=== PATIENT | female | born 1995 | race Caucasian/White ===

== ENCOUNTER → 2016-06-19 | Outpatient (REF) | payer OTHER ==
[~2016-06-19] MED LIST: FLOM5CAP PO; IRON65TA PO; KEFL500C7 PO; NORC7.5T PO; PERC7.5T3 PO; PREN1TAB11 PO; PRENTAB72 PO; ZOFR4TAB3 PO; ZOLO50TA PO
== END ==
LOC: M LAB REF 16:57
PROVIDERS: ATTEND Advanced Practice Midwife
DX: Z34.83 Encounter for supervision of other normal pregnancy, third trimester (principal)

== ENCOUNTER 2016-06-21 19:32 | Outpatient (CLI) | payer OTHER ==
[~2016-06-21] VITALS: Ht 172.7 cm; Wt 95.0 kg
[~2016-06-21 19:32] MED LIST changes: -PREN1TAB11 PO
[2016-06-21 19:46] VITALS: BP 124/77
[2016-06-21 20:11] LABS: MEAN CORPUSCULAR HEMOGLOBIN 28.5 pg (27.0-33.0); MEAN CORPUSCULAR HGB CONC 33.7 g/dl (32.0-36.5); MEAN CORPUSCULAR VOLUME 84.5 fl (80.0-96.0); RED CELL DISTRIBUTION WIDTH 13.9 % (11.5-14.5); WHITE BLOOD COUNT 7.5 K/mm3 (4.0-10.0)
[2016-06-21 20:35] LABS: ALT/SGPT 30 U/L (12-78); AST/SGOT 28 U/L (15-37); BILIRUBIN,TOTAL 0.3 MG/DL (0.2-1.0); CREATININE FOR GFR 0.63 MG/DL (0.55-1.02); GLOMERULAR FILTRATION RATE > 60.0 (>60); URIC ACID 3.7 MG/DL (2.6-6.0)
[2016-06-21] MEDS ORDERED: ACETAMINOPHEN 500 MG TAB PO PRN (20:45)
[2016-06-21 20:57] VITALS: BP 116/56
[2016-06-25] MEDS ORDERED: PREN1TAB11 PO (11:17)
== END 2016-06-21 21:10 | disposition home or self-care (01) ==
LOC: M LDO 19:32
PROVIDERS: ATTEND Advanced Practice Midwife
DX: O99.89 Other specified diseases and conditions complicating pregnancy, childbirth and the puerperium (principal); R51 Headache; J02.9 Acute pharyngitis, unspecified; Z3A.38 38 weeks gestation of pregnancy; Z87.59 Personal history of other complications of pregnancy, childbirth and the puerperium

== ENCOUNTER 2016-06-26 23:41 | Outpatient (CLI) | payer OTHER ==
[~2016-06-26] VITALS: Ht 172.7 cm; Wt 94.0 kg
[~2016-06-26 23:41] MED LIST changes: +PREN1TAB11 PO
[2016-06-26 23:50] VITALS: BP 161/86
[2016-06-26 23:59] VITALS: BP 147/79
[2016-06-27 00:23] VITALS: BP 114/62
[2016-06-27 00:48] VITALS: BP 118/59
== END 2016-06-27 01:10 | disposition home or self-care (01) ==
LOC: M LDO 23:41
PROVIDERS: ATTEND Obstetrics & Gynecology
DX: O47.1 False labor at or after 37 completed weeks of gestation (principal); O99.343 Other mental disorders complicating pregnancy, third trimester; O99.333 Smoking (tobacco) complicating pregnancy, third trimester; Z3A.40 40 weeks gestation of pregnancy

== ENCOUNTER 2016-07-02 07:54 | Inpatient (IN) | payer OTHER ==
[2016-07-02] VITALS (7 sets, daily range): BP systolic 110–135; BP diastolic 55–83
[~2016-07-02] VITALS: Ht 175.3 cm; Wt 94.0 kg
[2016-07-02] MEDS ORDERED: LR 1,000 ML IV SCH ×3 (07:58→12:15)
[2016-07-02] MEDS ORDERED: BICITRA 30ML SOLN UDC PO ONE (08:00)
[2016-07-02] MEDS ORDERED: ZOLO25TA PO (08:09)
[2016-07-02] MEDS ORDERED: IBUP800T23 PO (08:15)
[2016-07-02] MEDS ORDERED: PERCOCET PO (08:16)
--- NOTE | 2016-07-02 08:24 | HPE ---
DATE OF ADMISSION: 07/02/2016 REASON FOR ADMISSION: Scheduled repeat section. HISTORY OF PRESENT ILLNESS: Ms. Napoles is a 21-year-old, 4, para 2, who presents at 39 weeks 0 days estimated gestational age by a first trimester ultrasound for a scheduled section. Her course has been unremarkable. She initiated care in the first trimester at [facility] and has since transferred care to [facility] at 34 weeks. PAST MEDICAL HISTORY: None. PAST SURGICAL HISTORY: She has had a primary section and urethral stents placed. PAST OBSTETRICAL HISTORY: She is a 4, para 2. She has had a term vaginal delivery, followed by a section at 36 weeks for severe preeclampsia. SOCIAL HISTORY: History of heroin abuse as well as a former smoker. She quit during the . MEDICATIONS: - Zoloft for depression - vitamins ALLERGIES: She has no known drug allergies. PHYSICAL EXAM: Her vital signs are stable. She is afebrile. She has a Category I heart tracing. No contractions on tocometer. Her lungs are clear to auscultation bilaterally. Cardiovascular: Heart regular rate and rhythm. Her abdomen is soft, gravid, nontender. LABS: On labs, her blood type is A negative. Antibody screen is negative. Rubella is immune. RPR is nonreactive. Hepatitis surface antigen is negative. HIV negative. Hepatitis C nonreactive. Chlamydia and gonorrhea negative. She had a normal 1-hour Glucola of 120. She is GBS negative. ASSESSMENT: Ms. Napoles is a 21-year-old, 4, para 2, at 39 weeks 0 days estimated gestational age for scheduled section. She has been thoroughly counseled with regards to management for mode of delivery. She has been counseled for a trial of labor after section as well as an elective repeat lower transverse section. After consultation, the patient desires to proceed with an elective repeat lower transverse section. The plan is to proceed.
[2016-07-02 08:34] LABS: MEAN CORPUSCULAR HEMOGLOBIN 28.1 pg (27.0-33.0); MEAN CORPUSCULAR HGB CONC 32.7 g/dl (32.0-36.5); MEAN CORPUSCULAR VOLUME 85.8 fl (80.0-96.0); RED CELL DISTRIBUTION WIDTH 14.8 % (11.5-14.5); WHITE BLOOD COUNT 10.9 K/mm3 (4.0-10.0)
[2016-07-02] MEDS: PRENATAL VITAMIN TAB PO SCH (09:00)
[2016-07-02] MEDS ORDERED: METOCLOPRAMIDE INJ 10MG/2ML VIAL (J2765) IV PRN (10:29)
[2016-07-02] MEDS ORDERED: NALBUPHINE HCL 10 MG/ML AMP (J2300) IV PRN (10:29)
[2016-07-02] MEDS ORDERED: NALOXONE INJ 0.4 MG/1 ML VIAL (J2310) IV PRN ×2 (10:29)
[2016-07-02] MEDS ORDERED: ONDANSETRON 4MG/2ML VIAL (J2405) IV PRN ×3 (10:29→12:15)
[2016-07-02] MEDS ORDERED: fentaNYL 100 MCG/2 ML INJECTION (J3010) As Ordered ONE (11:08)
[2016-07-02] MEDS ORDERED: PHENYLephrine HCL 500 MCG/5 ML (100MCG/ML) SYRINGE (J2370) As Ordered ONE (11:08)
[2016-07-02] MEDS ORDERED: ONDANSETRON 4MG/2ML VIAL (J2405) As Ordered ONE (11:08)
[2016-07-02] MEDS ORDERED: KETOROLAC 60 MG/2 ML VIAL (J1885) As Ordered ONE (11:08)
[2016-07-02] MEDS ORDERED: OXYTOCIN INJ 10 UNITS/ML VIAL (J2590) As Ordered ONE (11:08)
[2016-07-02] MEDS ORDERED: MORPHINE PRES-FREE INJ 10 MG/10 ML VIAL (J2274) As Ordered ONE (11:08)
[2016-07-02] MEDS ORDERED: ePHEDrine SULFATE 25 MG/5 ML(5MG/ML) SYRINGE As Ordered ONE (11:08)
[2016-07-02] MEDS ORDERED: OXYTOCIN DRIP 30 UNITS in APPROPRIATE DILUENT 1 EA IV ONE (11:45)
[2016-07-02] MEDS ORDERED: DOCUSATE SODIUM 100 MG CAP PO PRN (11:45)
[2016-07-02] MEDS ORDERED: MEASLES,MUMPS,RUBELLA VACCINE INJ (MMR-II) (90707) SC SCH (11:45)
[2016-07-02] MEDS ORDERED: MOM 30ML SUSPENSION UDC PO PRN (11:45)
[2016-07-02] MEDS ORDERED: PERCOCET 5MG/325MG TAB PO PRN (11:45)
[2016-07-02] MEDS ORDERED: RHOGAM 300 MCG (1500 IU) INJ (J2790) IM SCH (11:45)
--- NOTE | 2016-07-02 12:09 | RO ---
DATE OF PROCEDURE: 07/02/2016 PREPROCEDURE DIAGNOSIS: Elective repeat low transverse section at 39 weeks 0 days estimated gestational age. POSTPROCEDURE DIAGNOSIS: Elective repeat low transverse section at 39 weeks 0 days estimated gestational age. PROCEDURE: Repeat section. SURGEON: Dalila Shea M.D. BUTCHER FISH: Jameson Hernandez M.D. Resident Maria G Escamilla. ANESTHESIA: Spinal. ESTIMATED BLOOD LOSS: 500 mL. INTRAVENOUS FLUIDS: 1800 mL lactated ringer solution. URINE OUTPUT: 150 mL. SPECIMENS: Cord blood. OPERATIVE FINDINGS: Live born male infant. 9 and 9. Weight 5 pounds 6 ounces, 2438 grams. PREOPERATIVE ANTIBIOTICS: 2 grams of Ancef. DESCRIPTION OF OPERATION: After informed consent was obtained and written consent was reviewed, the patient was brought to the operating room where spinal anesthesia was placed. She was then placed in the lithotomy position with left lateral tilt, Sprague catheter was placed and set to gravity. She was then prepped and draped in a normal sterile fashion. A time out in the operating room was then performed identifying the patient, procedure to be performed as well as drug allergies. Anesthesia was then tested and deemed to be adequate. A Pfannenstiel skin incision was then made along the previous skin incision and carried down to the lateral rectus fascia. The fascia was then scored and this excision was extended bilaterally. The fascia was then dissected off of the underlying rectus muscles both superiorly and inferiorly. The rectus muscles were then in midline, the peritoneum was then entered sharply. The vesicouterine peritoneum was then identified. It was tented and excised to create a bladder flap. Bladder blade was then placed and retracted back the bladder. A curvilinear incision was then made in the lower uterine segment. Amniotomy was then performed productive of clear fluid. The head was brought to the level of the incision atraumatically followed by delivery of shoulder and corpus. The cord was clamped times two and the was brought over to the warmer with good cry. Cord blood was then obtained. Placenta was then delivered grossly intact. The uterus was then exteriorized and cleared of all clots and debris. The uterine incision was then closed in two layers using #0 Vicryl, first layer in a running locking fashion followed by a second layer for imbrication in a running out of locking fashion. The abdomen was then suctioned. The uterus was returned to the patient's abdomen. Uterine incision was inspected and noted to be hemostatic. The anterior peritoneum was then reapproximated using #3-0 Vicryl. Rectus muscles were reapproximated using #3-0 Vicryl. The fascia was then closed using #0 Vicryl in a running non-locking fashion. The subcutaneous tissue was then irrigated to suction. Danyel's fascia was reapproximated with #3-0 Vicryl. Several subdermal stitches were placed with #3-0 Vicryl and the skin was closed with #4-0 Monocryl in subcuticular fashion. The incision was then cleaned and dried. Mastisol was applied above and below the incision. Steri-Strips were applied over the incision. The incision was then dressed. The patient was then taken to recovery in stable condition. Counts were correct. The couple decided to name their son Shawn.
[2016-07-02] MEDS ORDERED: fentaNYL 100 MCG/2 ML INJECTION (J3010) IV PRN (12:15)
[2016-07-02] MEDS ORDERED: MORPHINE 2 MG/ML 1ML SYRINGE IV PRN (12:15)
[2016-07-02] MEDS: PERCOCET 5MG/325MG TAB PO PRN ×2 (15:39→21:32)
[2016-07-02] MEDS: KETOROLAC 30 MG/ML VIAL (J1885) IV SCH ×2 (17:12→23:09)
[2016-07-02] MEDS: SERTRALINE HCL 25 MG TABLET PO SCH (22:08)
[2016-07-03 02:09] VITALS: BP 94/51
[2016-07-03] MEDS: KETOROLAC 30 MG/ML VIAL (J1885) IV SCH (05:00)
[2016-07-03 06:59] LABS: MEAN CORPUSCULAR HEMOGLOBIN 27.9 pg (27.0-33.0); MEAN CORPUSCULAR HGB CONC 32.4 g/dl (32.0-36.5); MEAN CORPUSCULAR VOLUME 86.1 fl (80.0-96.0); RED CELL DISTRIBUTION WIDTH 14.9 % (11.5-14.5); WHITE BLOOD COUNT 9.1 K/mm3 (4.0-10.0)
[2016-07-03] MEDS: PRENATAL VITAMIN TAB PO SCH (09:00)
[2016-07-03 10:12] VITALS: BP 116/67
[2016-07-03] MEDS: IBUPROFEN 800 MG TAB PO SCH ×2 (12:15→19:14)
[2016-07-03] MEDS: PERCOCET 5MG/325MG TAB PO PRN (13:33)
[2016-07-03 14:23] VITALS: BP 125/59
[2016-07-03 18:01] VITALS: BP 103/55
[2016-07-03] MEDS ORDERED: IBUPROFEN 800 MG TAB PO SCH (19:00)
[2016-07-03] MEDS: SERTRALINE HCL 25 MG TABLET PO SCH (20:55)
[2016-07-03 22:00] VITALS: BP 111/56
[2016-07-04 02:00] VITALS: BP 108/56
[2016-07-04] MEDS: IBUPROFEN 800 MG TAB PO SCH ×2 (02:39→10:44)
[2016-07-04 06:01] VITALS: BP 101/55
--- NOTE | 2016-07-04 07:44 | DSES ---
DATE OF ADMISSION: 07/02/2016 DATE OF DISCHARGE: 07/04/2016 DISCHARGE DIAGNOSIS: Repeat section at term stable condition. SURGEON: Dr. Dalila Seha HISTORY: Tiesha is a 21-year-old, 4, para 2-1-0-3 was admitted to labor and delivery for repeat section at term. Her care was uncomplicated. Her postoperative course has been uncomplicated. She has been out of bed for voiding, self care, josué care and care. Her pain has been controlled with oral medication. She denies any complaints this morning. Vital signs are stable. Temperature 97.2, pulse 79, respirations 18, blood pressure 108/56. Her breasts are soft, nontender. Abdomen: Fundus firm at U. Incision is dry and Steri-Strips are intact. There is no redness. No edema. No warmth. No drainage. Perineum is intact. Lochia rubra scant. CBC 117 preoperatively, hemoglobin 10.5, hematocrit 31.9, platelets 445. Postoperatively 118, hemoglobin 8.4, hematocrit 26.0, platelets 302. She does deny any headaches, palpitations or dizziness at this time and requests discharge to home. Discharge medications include: - oral Percocet 5/325, 1-2 tablets by mouth every 6 hours as needed for pain - ibuprofen as needed I did review discharge instructions that include breast care, incision care, josué care, pelvic rest, activity and lifting restrictions, access to care and other danger signs in which to report to her provider. She is to follow up at [facility] for 2 week incision check and 6 week visit. All of her questions have been answered and she is discharged home today. JANNET
[2016-07-04] MEDS: PRENATAL VITAMIN TAB PO SCH ×2 (07:51→10:43)
== END 2016-07-04 11:45 | disposition home or self-care (01) | DRG 540 ==
LOC: M LDI 07:54 → EDSTATUS 09:30 → M OBS 13:19
PROVIDERS: ADMIT Obstetrics & Gynecology; ATTEND Obstetrics & Gynecology
PROC: 10D00Z1 Extraction of Products of Conception, Low, Open Approach (ICD-10-PCS; principal; 2016-07-02 09:30)
DX: O34.211 Maternal care for low transverse scar from previous cesarean delivery (principal); Z87.891 Personal history of nicotine dependence; Z37.0 Single live birth; Z3A.39 39 weeks gestation of pregnancy

== ENCOUNTER → 2016-07-19 | Outpatient (CLI) | payer OTHER ==
[~2016-07-19] MED LIST changes: +IBUP800T23 PO; +PERCOCET PO; +ZOLO25TA PO
[2016-07-19 18:42] LABS: THYROXINE (T4) 11.1 UG/DL (4.5-12.0)
== END ==
LOC: M SMT 14:45
PROVIDERS: ATTEND Advanced Practice Midwife
DX: F32.89 Other specified depressive episodes (principal)

== ENCOUNTER 2018-04-12 14:18 | Inpatient (IN) | payer OTHER ==
[2018-04-12] MEDS ORDERED: ISOVUE-370 76% 100ML VIAL (Q9967) As Ordered (14:38)
[2018-04-12] MEDS: NS 1,000 ML IV (14:45)
[2018-04-12 15:05] LABS: BEDSIDE GLUCOSE 95 MG/DL (70-105)
[2018-04-12 15:08] LABS: BASO % 0.3 % (0.0-1.0); EOS % 0.3 % (0.0-3.0); HEMOGLOBIN 9.3 g/dl (12.0-15.5); IMMATURE GRANULOCYTE % 0.4 % (0-3.0); LYMPH # 1.8 10^3/uL (1.5-6.5); LYMPH % 15.4 % (24.0-44.0); MEAN CORPUSCULAR HEMOGLOBIN 26.2 pg (27.0-33.0); MEAN CORPUSCULAR HGB CONC 32.1 g/dl (32.0-36.5); MEAN CORPUSCULAR VOLUME 81.7 fl (80.0-96.0); MONO # 0.6 10^3/uL (0.0-0.8); MONO % 5.4 % (0.0-5.0); NEUTROPHILS % 78.2 % (36.0-66.0); PLATELET COUNT, AUTOMATED 293 10^3/uL (150-450); RED BLOOD COUNT 3.55 10^6/uL (4.00-5.40); RED CELL DISTRIBUTION WIDTH 17.3 % (11.5-14.5); WHITE BLOOD COUNT 11.5 10^3/uL (4.0-10.0)
[2018-04-12 15:19] LABS: PARTIAL THROMBOPLASTIN TIME 27.1 SECONDS (25.4-37.6)
[2018-04-12] MEDS ORDERED: LIDOCAINE W/EPINEPHRINE 1% 20ML VIAL As Ordered (15:22)
[2018-04-12 15:26] LABS: LACTIC ACID SEPSIS PROTOCOL 1.2 MMOL/L (0.4-2.0)
[2018-04-12 15:36] LABS: ALBUMIN 2.3 GM/DL (3.2-5.2); ALBUMIN/GLOBULIN RATIO 0.61 (1.00-1.93); ALKALINE PHOSPHATASE 78 U/L (45-117); ALT/SGPT 12 U/L (12-78); AMYLASE 33 U/L (25-115); ANION GAP 10 MEQ/L (8-16); AST/SGOT 18 U/L (7-37); BILIRUBIN,DIRECT < 0.1 MG/DL (0.0-0.2); BILIRUBIN,TOTAL 0.2 MG/DL (0.2-1.0); BLOOD UREA NITROGEN 8 MG/DL (7-18); CALCIUM LEVEL 7.8 MG/DL (8.5-10.1); CARBON DIOXIDE LEVEL 21 MEQ/L (21-32); CHLORIDE LEVEL 107 MEQ/L (98-107); CPK CREATINE PHOSPHOKINASE 54 U/L (26-192); CREATININE FOR GFR 0.51 MG/DL (0.55-1.30); ETHYL ALCOHOL (ETHANOL) < 0.003 % (0.000-0.010); GLOMERULAR FILTRATION RATE > 60.0 (>60); GLUCOSE, FASTING 100 MG/DL (70-100); LIPASE 81 U/L (73-393); MB/CK RELATIVE INDEX 3.15 (< OR =4); POTASSIUM SERUM 3.8 MEQ/L (3.5-5.1); SODIUM LEVEL 138 MEQ/L (136-145); TOTAL PROTEIN 6.1 GM/DL (6.4-8.2); TROPONIN I < 0.02 NG/ML (< 0.10)
[2018-04-12 15:46] LABS: INR 1.02; PROTHROMBIN TIME 13.5 SECONDS (12.1-14.4)
[2018-04-12 15:47] LABS: FIBRINOGEN 445 MG/DL (221-452)
[2018-04-12] MEDS ORDERED: NS 1,000 ML IV (16:07)
[2018-04-12] MEDS: RHOGAM 300 MCG (1500 IU) INJ (J2790) IM (16:15)
[2018-04-12] MEDS ORDERED: METOCLOPRAMIDE INJ 10MG/2ML VIAL (J2765) IV (16:15)
[2018-04-12] MEDS: D5W/0.9% SODIUM CHLORIDE 1,000 ML IV (16:15)
[2018-04-12 16:20] LABS: FETAL DEX (KLEIHAUER BETKE) 1 1
[2018-04-12] MEDS: DERMABOND TOPICAL SKIN ADHESIVE TOP (17:00)
[2018-04-12] MEDS: ADACEL/BOOSTRIX VACCINE (DIPHTH/PERTUSS/ACELL/TETANUS)0.5ML SYR (90715) IM (18:01)
[2018-04-12] MEDS: NORCO, ANEXSIA 5/325MG TABLET (HYDROcodone/ACETAMINOPHEN) PO (18:38)
[2018-04-12] MEDS: ceFAZolin SOD 1 GM in D5W MINI-BAG PLUS 50 ML IV (18:38)
[2018-04-12] MEDS: MORPHINE 4 MG/ML 1ML VIAL/SYRINGE (J2270) IV ×2 (20:32→23:02)
[2018-04-13] MEDS: NORCO, ANEXSIA 5/325MG TABLET (HYDROcodone/ACETAMINOPHEN) PO ×3 (02:26→16:39)
[2018-04-13] MEDS: ceFAZolin SOD 1 GM in D5W MINI-BAG PLUS 50 ML IV ×3 (02:26→16:38)
[2018-04-13] MEDS: MORPHINE 4 MG/ML 1ML VIAL/SYRINGE (J2270) IV ×5 (04:43→21:50)
[2018-04-13 08:47] LABS: HEMATOCRIT 26.6 % (36.0-47.0); HEMOGLOBIN 8.3 g/dl (12.0-15.5); MEAN CORPUSCULAR HEMOGLOBIN 25.9 pg (27.0-33.0); MEAN CORPUSCULAR HGB CONC 31.2 g/dl (32.0-36.5); MEAN CORPUSCULAR VOLUME 82.9 fl (80.0-96.0); PLATELET COUNT, AUTOMATED 238 10^3/uL (150-450); RED BLOOD COUNT 3.21 10^6/uL (4.00-5.40); RED CELL DISTRIBUTION WIDTH 17.8 % (11.5-14.5); WHITE BLOOD COUNT 9.7 10^3/uL (4.0-10.0)
[2018-04-13 08:55] LABS: FIBRINOGEN 386 MG/DL (221-452)
[2018-04-13] MEDS: PROMETHAZINE INJ 25 MG/ML VIAL (J2550) IV (08:58)
[2018-04-13] MEDS: BACITRACIN OINT 30GM TOP (09:00)
[2018-04-13] MEDS: PRENATAL VITAMINS CHEWABLE TABLET PO (10:13)
[2018-04-13] MEDS: ACETAMINOPHEN TAB 650MG DOSE (2X325MG) PO ×2 (14:11→21:50)
[2018-04-13] MEDS: ONDANSETRON 4MG/2ML VIAL (J2405) IV (14:12)
[2018-04-14] MEDS: NORCO, ANEXSIA 5/325MG TABLET (HYDROcodone/ACETAMINOPHEN) PO ×3 (00:48→15:53)
[2018-04-14] MEDS: ceFAZolin SOD 1 GM in D5W MINI-BAG PLUS 50 ML IV ×3 (01:53→18:16)
[2018-04-14] MEDS: PRENATAL VITAMINS CHEWABLE TABLET PO (09:25)
[2018-04-14] MEDS: BACITRACIN OINT 30GM TOP (09:26)
[2018-04-15] MEDS: ceFAZolin SOD 1 GM in D5W MINI-BAG PLUS 50 ML IV ×2 (02:19→10:26)
[2018-04-15] MEDS: NORCO, ANEXSIA 5/325MG TABLET (HYDROcodone/ACETAMINOPHEN) PO ×2 (02:20→09:54)
[2018-04-15] MEDS: PRENATAL VITAMINS CHEWABLE TABLET PO (09:52)
[2018-04-15] MEDS: BACITRACIN OINT 30GM TOP (09:54)
== END 2018-04-15 12:25 | disposition home or self-care (01) | DRG 566 ==
LOC: M ED 14:18 → M ED INP 16:07 → M MS5PR 18:30
PROC: 30233S1 Transfusion of Nonautologous Globulin into Peripheral Vein, Percutaneous Approach (ICD-10-PCS; principal; 2018-04-12)
DX: O9A.212 Injury, poisoning and certain other consequences of external causes complicating pregnancy, second trimester (principal); S09.90XA Unspecified injury of head, initial encounter; S93.401A Sprain of unspecified ligament of right ankle, initial encounter; Z3A.20 20 weeks gestation of pregnancy; S61.210A Laceration without foreign body of right index finger without damage to nail, initial encounter; S80.212A Abrasion, left knee, initial encounter; S60.512A Abrasion of left hand, initial encounter; S40.212A Abrasion of left shoulder, initial encounter; F31.9 Bipolar disorder, unspecified; F43.0 Acute stress reaction; F17.210 Nicotine dependence, cigarettes, uncomplicated; Z79.899 Other long term (current) drug therapy; V47.0XXA Car driver injured in collision with fixed or stationary object in nontraffic accident, initial encounter; Y92.9 Unspecified place or not applicable; Y93.89 Activity, other specified; O99.342 Other mental disorders complicating pregnancy, second trimester; O99.332 Smoking (tobacco) complicating pregnancy, second trimester

== ENCOUNTER → 2018-07-17 | Outpatient (REF) | payer OTHER ==
[~2018-07-17] MED LIST changes: +FLOM0.4C39 PO; -FLOM5CAP PO; +IBUP1TAB7 PO; -IBUP800T23 PO; +KEFL500C17 PO; -KEFL500C7 PO; -NORC7.5T PO; +NORC7.5T35 PO; +NORCOTAB PO; +PERC7.5T11 PO; -PERC7.5T3 PO; +ZOFR4TAB14 PO; -ZOFR4TAB3 PO
== END ==
LOC: M LAB REF 17:28
PROVIDERS: ATTEND Obstetrics & Gynecology
DX: Z34.83 Encounter for supervision of other normal pregnancy, third trimester (principal)

== ENCOUNTER 2018-07-23 22:39 | Outpatient (CLI) | payer OTHER | END 2018-07-24 00:05 | disposition home or self-care (01) | LOC: M LDO 22:39 | PROVIDERS: ATTEND Specialist | DX: O26.893 Other specified pregnancy related conditions, third trimester (principal); R10.10 Upper abdominal pain, unspecified; Z3A.35 35 weeks gestation of pregnancy ==

== ENCOUNTER → 2018-07-30 | Outpatient (REF) | payer OTHER, MEDICAID ==
[~2018-07-30] MED LIST changes: +BUPR8SUB SL; +SUBO8MIS SL
== END ==
LOC: M LAB REF 13:07
PROVIDERS: ATTEND Advanced Practice Midwife
DX: O34.211 Maternal care for low transverse scar from previous cesarean delivery (principal); Z3A.00 Weeks of gestation of pregnancy not specified

== ENCOUNTER 2018-08-20 05:26 | Inpatient (IN) | payer OTHER ==
[~2018-08-20] VITALS: Ht 172.7 cm; Wt 87.8 kg
[2018-08-20] MEDS ORDERED: LR 1,000 ML IV ONE (06:00)
[2018-08-20] MEDS ORDERED: BICITRA 30ML SOLN UDC PO ONE (06:00)
[2018-08-20] MEDS ORDERED: BUPR2SUB SL (06:32)
[2018-08-20] MEDS ORDERED: LR 1,000 ML IV SCH ×3 (07:00→09:00)
[2018-08-20 07:20] LABS: HEMATOCRIT 28.7 % (36.0-47.0); HEMOGLOBIN 8.9 g/dl (12.0-15.5); MEAN CORPUSCULAR HEMOGLOBIN 25.9 pg (27.0-33.0); MEAN CORPUSCULAR VOLUME 83.4 fl (80.0-96.0); PLATELET COUNT, AUTOMATED 310 10^3/uL (150-450); RED BLOOD COUNT 3.44 10^6/uL (4.00-5.40); WHITE BLOOD COUNT 9.1 10^3/uL (4.0-10.0)
[2018-08-20 07:30] LABS: AMPHETAMINES URINE REFLEX NEGATIVE (NEGATIVE); BARBITURATES URINE REFLEX NEGATIVE (NEGATIVE); BENZODIAZEPINES URINE REFLEX NEGATIVE (NEGATIVE); CANNABINOIDS URINE REFLEX NEGATIVE (NEGATIVE); COCAINE METABOLITE URINE REFLE NEGATIVE (NEGATIVE); METHADONE URINE REFLEX NEGATIVE (NEGATIVE); OPIATES URINE REFLEX NEGATIVE (NEGATIVE); PHENCYCLIDINE URINE REFLEX NEGATIVE (NEGATIVE)
[2018-08-20] MEDS ORDERED: NALBUPHINE HCL 10 MG/ML AMP (J2300) IV PRN (07:46)
[2018-08-20] MEDS ORDERED: diphenhydrAMINE INJ 50MG/ML VIAL (J1200) IV PRN (07:46)
[2018-08-20] MEDS ORDERED: METOCLOPRAMIDE INJ 10MG/2ML VIAL (J2765) IV PRN (07:46)
[2018-08-20] MEDS ORDERED: NALOXONE INJ 0.4 MG/1 ML VIAL (J2310) IV PRN ×2 (07:46)
[2018-08-20] MEDS ORDERED: ONDANSETRON 4MG/2ML VIAL (J2405) IV PRN ×3 (07:46→09:00)
[2018-08-20] MEDS ORDERED: BUPIVACAINE/DEXTROSE 0.75% 2 ML AMP As Ordered ONE (08:30)
[2018-08-20] MEDS ORDERED: MORPHINE PRES-FREE INJ 10 MG/10 ML VIAL (J2274) As Ordered ONE (08:30)
[2018-08-20] MEDS ORDERED: PHENYLephrine HCL 500 MCG/5 ML (100MCG/ML) SYRINGE (J2370) As Ordered ONE (08:30)
[2018-08-20] MEDS ORDERED: dexameTHASONE 4 MG/ML 1ML VIAL (J1100) As Ordered ONE (08:30)
[2018-08-20] MEDS ORDERED: OXYTOCIN INJ 10 UNITS/ML VIAL (J2590) As Ordered ONE (08:30)
[2018-08-20] MEDS ORDERED: ONDANSETRON 4MG/2ML VIAL (J2405) As Ordered ONE (08:30)
[2018-08-20] MEDS ORDERED: OXYTOCIN DRIP 30 UNITS in APPROPRIATE DILUENT 1 EA IV SCH (08:54)
[2018-08-20] MEDS ORDERED: MEASLES,MUMPS,RUBELLA VACCINE INJ (MMR-II) (90707) SC SCH (09:00)
[2018-08-20] MEDS ORDERED: RHOGAM 300 MCG (1500 IU) INJ (J2790) IM SCH (09:00)
[2018-08-20] MEDS ORDERED: MOM 30ML SUSPENSION UDC PO PRN (09:00)
[2018-08-20] MEDS ORDERED: fentaNYL 100 MCG/2 ML INJECTION (J3010) IV PRN (09:00)
[2018-08-20] MEDS ORDERED: ULTRACET TAB PO PRN (09:00)
[2018-08-20] MEDS ORDERED: fentaNYL 100 MCG/2 ML INJECTION (J3010) As Ordered ONE (09:49)
[2018-08-20] MEDS ORDERED: KETOROLAC 30 MG/ML VIAL (J1885) As Ordered ONE (09:58)
--- NOTE | 2018-08-20 09:59 | RO ---
DATE OF OPERATION: 08/20/2018 PREOPERATIVE DIAGNOSES: 1. Intrauterine at 39 weeks. 2. History two prior sections for a repeat. POSTOPERATIVE DIAGNOSES: 1. Intrauterine at 39 weeks. 2. History two prior sections for a repeat. PROCEDURE PERFORMED: Repeat section. SURGEON: Dalila Shea MD LEHR OPERATOR: Kimberlee Crowe CNM ANESTHESIA: Spinal. ESTIMATED BLOOD LOSS: 500 mL. INTRAVENOUS FLUIDS: 1000 mL of lactated Ringer solution. URINE OUTPUT: 50 mL. PREOPERATIVE ANTIBIOTICS: 2 grams of Ancef. OPERATIVE FINDINGS: Liveborn female , scores 9 and 9, weight was 2490 grams or 5 pounds 8 ounces. DESCRIPTION OF OPERATION: After informed was obtained and written consent was reviewed, the patient was brought to the operating room, where spinal anesthesia was placed. She was then placed in the supine position with a left lateral tilt. Sprague catheter was placed and set to gravity. She was then prepped and draped in a normal sterile fashion. Time-out in the operating room was then performed, identifying the patient, the procedure to be performed, as well as drug allergies. Anesthesia was tested and deemed to be adequate. A Pfannenstiel skin incision was then made along the previous skin incision. This incision was carried down to the line of rectus fascia. The fascia was scored, and this incision was extended bilaterally. The fascia was then dissected off the underlying rectus muscles both superiorly and inferiorly. The rectus muscles were in the midline. The peritoneum was then entered sharply. This was also extended. The vesicouterine peritoneum was then identified, was tented and excised to create a bladder flap. Bladder blade was then placed to retract back the vesicouterine peritoneum. A curvilinear incision was then made in the lower uterine segment. This incision was extended bilaterally. Amniotomy was then performed, productive of clear fluid. The head was brought to the level of the incision atraumatically and delivered along with shoulders and corpus. The cord was clamped times two and was cut, and the was taken over to the warmer with good cry. Cord blood was obtained. Placenta was then drained and delivered grossly intact. The uterus was then exteriorized, cleared of all clots and debris. Uterine incision was then closed in two layers using 0 Vicryl, first in a running locking fashion followed by a second layer for imbrication in a running nonlocking fashion. The abdomen was then suctioned. The uterus was returned to the patient's abdomen and was reinspected and noted be hemostatic. The anterior peritoneum was then reapproximated with 3-0 Vicryl. The fascia was then closed with 0 Vicryl in a running nonlocking fashion. Subcutaneous tissue was then irrigated and suctioned. The subcutaneous tissue was then reapproximated with 3-0 Vicryl. Several subdermal stitches were placed with 3-0 Vicryl, and the skin was closed with 4-0 Monocryl in a subcuticular fashion. Incision was then cleaned and dried and was dressed, and the patient taken to recovery in stable condition. Counts were correct. My digital assistant, Kimberlee Crowe, played an essential role during surgery. She assisted with tissue identification, retraction, as well as delivery of the and wound closure.
[2018-08-20] MEDS ORDERED: OXYTOCIN 30 UNITS IN 0.9% NaCl 500ML IV BAG (J2590) As Ordered ONE (10:21)
[2018-08-20] MEDS: KETOROLAC 30 MG/ML VIAL (J1885) IV SCH ×3 (10:24→22:01)
[2018-08-20 11:05] VITALS: BP 138/102
[2018-08-20 11:30] VITALS: BP 130/82
[2018-08-20] MEDS: DOCUSATE SODIUM 100 MG CAP PO SCH ×2 (12:00→22:01)
[2018-08-20] MEDS: PRENATAL VITAMINS CHEWABLE TABLET PO SCH (12:00)
[2018-08-20 12:40] VITALS: BP 135/77
[2018-08-20 13:40] VITALS: BP 142/71
[2018-08-20] MEDS ORDERED: ADACEL/BOOSTRIX VACCINE (DIPHTH/PERTUSS/ACELL/TETANUS)0.5ML SYR (90715) IM PRN (16:45)
[2018-08-20 18:09] VITALS: BP 136/78
[2018-08-20] MEDS ORDERED: ENTER DRUG NAME HERE (PATIENT'S OWN MED) SL SCH (21:00)
[2018-08-20 22:00] VITALS: BP 149/79
[2018-08-21 02:15] VITALS: BP 112/55
[2018-08-21] MEDS: KETOROLAC 30 MG/ML VIAL (J1885) IV SCH (04:06)
[2018-08-21 05:41] VITALS: BP 113/57
[2018-08-21 06:51] LABS: HEMATOCRIT 23.5 % (36.0-47.0); HEMOGLOBIN 7.5 g/dl (12.0-15.5); MEAN CORPUSCULAR HEMOGLOBIN 26.2 pg (27.0-33.0); MEAN CORPUSCULAR HGB CONC 31.9 g/dl (32.0-36.5); MEAN CORPUSCULAR VOLUME 82.2 fl (80.0-96.0); PLATELET COUNT, AUTOMATED 246 10^3/uL (150-450); RED BLOOD COUNT 2.86 10^6/uL (4.00-5.40); WHITE BLOOD COUNT 10.1 10^3/uL (4.0-10.0)
[2018-08-21] MEDS ORDERED: ULTR37.54 PO (07:05)
[2018-08-21] MEDS ORDERED: IBUP1TAB7 PO (07:07)
--- NOTE | 2018-08-21 07:10 | NUR ---
PPD#1 S:Doing well w/o complaints. Pain well controlled. Min loichia, + ambulation and voiding O: vss, Af gen: well appearing abd: soft, appropriately tender, ff@u-1 incision: dress, scant blood ext: neg calf tenderness A/P: PPD#1 s/p repeat c/s- recovering in stable condition -cont routine postop care -d/c plans tomorrow Dalila Shea MD
[2018-08-21] MEDS: PRENATAL VITAMINS CHEWABLE TABLET PO SCH (08:12)
[2018-08-21] MEDS: DOCUSATE SODIUM 100 MG CAP PO SCH (08:12)
[2018-08-21 10:00] VITALS: BP 112/68
[2018-08-21] MEDS ORDERED: IBUPROFEN 800 MG TAB PO SCH (12:00)
[2018-08-21 14:00] VITALS: BP 115/59
--- NOTE | 2018-08-21 17:26 | DSES ---
DATE OF ADMISSION: 08/20/2018 DATE OF DISCHARGE: 08/21/2018 DISCHARGE DIAGNOSIS: 1. Repeat section postoperative day1, stable condition. HISTORY: Tiesha is a 23-year-old 6, para 3-1-2-4 now, who underwent repeat section on 08/20/2018. SURGEON: Dr. Dalila Shea PINKED EDGE SEWING MACHINE OPERATOR: Kimberlee Crowe, certified nurse fur finisher seamstress. Surgery was complicated. She had an estimated blood loss of 500 mL. Delivered a live female weighing 2490 grams, 5 pounds 8 ounces, score 9 and 9. Her postoperative course has been uncomplicated. SUBJECTIVE: She reports pain well controlled with by mouth pain medications. She is voiding without difficulty, tolerating a regular diet, passing flatus. She has been out of bed for self care care, josué care. She is ambulating without difficulty. She is requesting discharge to home today. has been discharged. OBJECTIVE: Temperature 98.6, pulse 91, respirations 18, blood pressure (BP) is 115/59. She is alert and oriented x3, smiling and talkative. Admission complete blood count (CBC) on 08/20/2018 hemoglobin 8.9, hematocrit 28.7, platelets are 310. Discharge complete blood count (CBC) on 08/21/2018 hemoglobin 7.5, hematocrit 23.5, platelets 246. Her breasts are soft, nontender. Nipples are intact. No cracks, no bleeding. Her abdomen fundus firm at U. The dressing is applied to the incision, it is intact. There is no drainage noted. Her perineum is intact. Lochia rubra scant. DISCHARGE/PLAN: Discharge the patient to home today. She is to follow up at [facility] in 2 weeks for an incision check. Her dressing should be removed on postop day 5. She is to follow up at [facility] for 8-week visit. I did review discharge instructions that include breast care incision care, josué care, pelvic rest, activity and lifting restrictions, other danger signs to report to her provider and access to care. Prescriptions have been E-prescribed by Dr. Dalila Shea for pain medications.
== END 2018-08-21 17:35 | disposition home or self-care (01) | DRG 540 ==
LOC: M LDI 05:26 → M OBS 11:00
PROVIDERS: ADMIT Obstetrics & Gynecology; ATTEND Obstetrics & Gynecology
PROC: 10D00Z1 Extraction of Products of Conception, Low, Open Approach (ICD-10-PCS; principal; 2018-08-20 07:30)
DX: O34.211 Maternal care for low transverse scar from previous cesarean delivery (principal); Z37.0 Single live birth; Z3A.39 39 weeks gestation of pregnancy

== ENCOUNTER 2019-09-20 21:16 | Inpatient (IN) | payer MEDICAID, OTHER, SELFPAY ==
[~2019-09-20] VITALS: Ht 172.7 cm; Wt 62.2 kg
[~2019-09-20 21:16] MED LIST changes: +BUPR2SUB SL; +HYDR-3715 PO; +NORC1TAB8 PO; -NORC7.5T35 PO; -NORCOTAB PO; +ULTR37.54 PO
[2019-09-20] MEDS ORDERED: NS 1,000 ML IV ONE (21:45)
--- NOTE | 2019-09-20 23:54 | REPVR ---
PROCEDURE INFORMATION: Exam: US Abdomen Limited, Right Upper Quadrant Exam date and time: 09/20/2019 11:05 PM Age: 24 years old Clinical indication: Abdominal pain; Acute; Additional info: Ruq pain; HX of gallbladder issues? TECHNIQUE: Imaging protocol: Real-time ultrasound of the abdomen with image documentation. Examination was focused on the right upper quadrant. COMPARISON: No relevant prior studies available. FINDINGS: Liver: Mild mild heterogeneous echogenicity of the liver. This is nonspecific. Gallbladder: Abnormal echogenicity within the gallbladder, consistent with sludge. A small shadowing gallstone is visualized within the gallbladder. Within the nondependent gallbladder wall, there is a shadowing subcentimeter echogenic focus, suggestive of a gallbladder polyp or adherent gallstone. Significant gallbladder wall thickening is identified, which can be associated with acute cholecystitis. Additional gallbladder pathology cannot be excluded. The gallbladder is mildly distended. Common bile duct: The common bile duct measures 3-4 mm in diameter, which is within normal limits. Pancreas: Evaluation of the pancreas is limited by bowel gas. Right kidney: The right kidney measures 13.6 x 4.9 x 4.6 cm. No hydronephrosis or shadowing nephrolithiasis. IMPRESSION: 1. Abnormal echogenicity within the gallbladder, consistent with sludge. The gallbladder is mildly distended. A small shadowing gallstone is visualized within the gallbladder. Within the nondependent gallbladder wall, there is a suggested small gallbladder polyp or adherent gallstone. Significant gallbladder wall thickening is identified, which can be associated with acute cholecystitis. Additional gallbladder pathology cannot be excluded. Correlation with the clinical exam and possible surgical consultation recommended. 2. Additional findings described above. Electronically signed by: Domenico Hernandes On 09/20/2019 23:53:18 PM
[2019-09-21] VITALS (7 sets, daily range): BP systolic 108–132; BP diastolic 68–91
[2019-09-21 00:16] LABS: BASO # 0.1 10^3/uL (0.0-0.2); BASO % 0.3 % (0.0-1.0); EOS # 0.2 10^3/uL (0.0-0.5); EOS % 0.9 % (0.0-3.0); HEMATOCRIT 40.6 % (36.0-47.0); HEMOGLOBIN 13.4 g/dl (12.0-15.5); LYMPH # 2.6 10^3/uL (1.5-5.0); LYMPH % 10.9 % (24.0-44.0); MEAN CORPUSCULAR HEMOGLOBIN 27.7 pg (27.0-33.0); MEAN CORPUSCULAR VOLUME 83.9 fl (80.0-96.0); MONO # 1.1 10^3/uL (0.0-0.8); MONO % 4.7 % (0.0-5.0); NEUTROPHILS # 19.7 10^3/uL (1.5-8.5); NEUTROPHILS % 82.6 % (36.0-66.0); PLATELET COUNT, AUTOMATED 527 10^3/uL (150-450); RED BLOOD COUNT 4.84 10^6/uL (4.00-5.40); WHITE BLOOD COUNT 23.9 10^3/uL (4.0-10.0)
[2019-09-21 00:33] LABS: ALBUMIN 3.3 GM/DL (3.2-5.2); ALT/SGPT 12 U/L (12-78); BILIRUBIN,DIRECT 0.2 MG/DL (0.0-0.2); BILIRUBIN,TOTAL 0.5 MG/DL (0.2-1.0); LIPASE 91 U/L (73-393); TOTAL PROTEIN 8.4 GM/DL (6.4-8.2)
[2019-09-21 00:51] LABS: BLOOD UREA NITROGEN 11 MG/DL (7-18); CALCIUM LEVEL 9.1 MG/DL (8.5-10.1); CARBON DIOXIDE LEVEL 24 MEQ/L (21-32); CHLORIDE LEVEL 102 MEQ/L (98-107); CREATININE FOR GFR 0.57 MG/DL (0.55-1.30); GLOMERULAR FILTRATION RATE > 60.0 (>60); GLUCOSE, FASTING 112 MG/DL (70-100); POTASSIUM SERUM 3.9 MEQ/L (3.5-5.1); SODIUM LEVEL 135 MEQ/L (136-145)
[2019-09-21] MEDS ORDERED: ONDANSETRON 4MG/2ML VIAL (J2405) IV PRN (02:15)
[2019-09-21] MEDS: NS 1,000 ML IV SCH ×3 (02:15→21:45)
[2019-09-21] MEDS ORDERED: ACETAMINOPHEN TAB 650MG DOSE (2X325MG) PO PRN (02:15)
[2019-09-21 02:32] LABS: HCG, SERUM QUALITATIVE NEGATIVE (NEGATIVE)
[2019-09-21] MEDS ORDERED: ISOVUE-370 76% 100ML VIAL (Q9967) As Ordered ONE (02:34)
[2019-09-21] MEDS: MORPHINE 2 MG/ML 1ML VIAL (J2270) IV PRN (03:06)
--- NOTE | 2019-09-21 03:18 | REPVR ---
PROCEDURE INFORMATION: Exam: CT Abdomen and Pelvis With Contrast Exam date and time: 09/21/19 (2:51am) Age: 24 years old Clinical indication: Abdominal pain. Possible acute cholecystitis. TECHNIQUE: Imaging protocol: Computed tomography of the abdomen and pelvis with intravenous contrast. Radiation optimization: All CT scans at this facility use at least one of these dose optimization techniques: automated exposure control; mA and/or kV adjustment per patient size (includes targeted exams where dose is matched to clinical indication); or iterative reconstruction. Contrast material: Iso Contrast volume: 100 ml Contrast route: Antecubital vein COMPARISON: CT ABDOMEN PELVIS of 04/12/18 FINDINGS: Liver: Normal. No solid mass. Gallbladder and bile ducts: Distended gallbladder, with a thickened, edematous wall. Much pericholecystic inflammation. Fluid and inflammatory changes prominently seen inferior and medial to the gallbladder. Small faintly calcified stone, seen dependently (axial image #72). No ductal dilatation. Pancreas: Normal. No ductal dilatation. Spleen: Prominent spleen. Adrenals: Normal. No mass. Kidneys and ureters: Normal. No hydronephrosis. Stomach and bowel: Unremarkable. No bowel obstruction. No mucosal thickening. Appendix: No evidence of appendicitis. Intraperitoneal space: Unremarkable. No free air. No significant fluid collection. Vasculature: Unremarkable. No abdominal aortic aneurysm. Lymph nodes: Unremarkable. No enlarged lymph nodes. Bladder: Unremarkable as visualized. Reproductive: Unremarkable as visualized. Bones/joints: Unremarkable. No acute fracture. Soft tissues: Unremarkable. IMPRESSION: Findings are compatible with acute cholecystitis. Similar gallbladder findings were noted on recent ultrasound. Surgical consultation and close follow-up are suggested. Electronically signed by: Erin Nguyen On 09/21/2019 03:17:52 AM
[2019-09-21] MEDS: KETOROLAC 30 MG/ML VIAL (J1885) IV SCH ×4 (04:21→21:44)
[2019-09-21] MEDS: PIPERACILLIN/TAZOBACTAM SOD 3.375 GM in D5W MINI-BAG PLUS 50 ML IV SCH ×4 (04:57→21:44)
--- NOTE | 2019-09-21 06:27 | HPE ---
DATE OF ADMISSION: 09/21/2019 ADMITTING DIAGNOSIS: Acute cholecystitis. HISTORY OF PRESENT ILLNESS: The patient is a 24-year-old woman who presented to the emergency department at [facility] late on September 19 complaining of abdominal pain. She reports that she has had a week of constant severe epigastric pain with some radiation into her right flank and back. She has not noted definite fevers or chills. She reports having had nausea and vomiting frequently during this period of time. She indicates that she was seen at [facility] about a month ago and had an ultrasound that showed gallstones. She was to follow up with a physician in [place], but did not keep that appointment. She recently moved from the [facility] to [place]. She denies any history of jaundice. She has had no history of pancreatitis. She does report a positive hepatitis C test and has not been treated. She has a history of intravenous drug abuse with heroin, but reports that she has been sober for 1 week. In the emergency department at [facility], she underwent evaluation with some lab work that showed an elevated white blood cell count and a gallbladder ultrasound showed a gallbladder with significant sludge with thickening of the gallbladder wall. She had tenderness in the right upper quadrant. I was consulted and the patient is now admitted for management of acute cholecystitis. ALLERGIES: The patient has a reported allergy only to LATEX, but no medication allergies. MEDICATIONS: The patient has been on no routine meds. PAST SURGICAL HISTORY: The patient has had three sections, most recently in 2019. She had a ureteral stent placed for a renal stone back in about 2014. The stent was subsequently removed. MEDICAL HISTORY: Significant for her positive hepatitis C test. She has a history of heroin use. She denies any heart, lung or endocrine problems otherwise. FAMILY HISTORY: The patient reports that her mother had her gallbladder removed. SOCIAL HISTORY: The patient has been a smoker in the past. She apparently denies significant alcohol use, but does use heroin fairly regularly. She reports that she has been sober for 1 week. REVIEW OF SYSTEMS: Reveals no history of chest pain or palpitations. She denies shortness of breath, cough, wheezing or sputum production. She has not had definite fevers or chills. She denies any history of seizure, stroke or transient ischemic attack (TIA). She has had no history of deep vein thrombosis (DVT) or pulmonary embolus. She denies any significant bone or joint issues. She reports she has just had her period and does not believe that she would be . She denies any current urinary symptoms. She has had no lower gastrointestinal (GI) symptoms, but does report nausea and vomiting over the past week. PHYSICAL EXAMINATION: Reveals a fairly thin young woman lying quietly on the emergency room (ER) stretcher. She is alert and reports pain in the right upper quadrant. Skin is warm and dry. Sclerae are anicteric. The teeth are in poor repair. The neck is supple. Heart exam shows that she is not tachycardiac and there is no definite murmur. Lungs are clear to auscultation bilaterally. The abdomen is flat. She has an old lower abdominal scar. She has tenderness in the right upper quadrant which is not localized to a small area but covers much of her right upper quadrant. There is no definite mass appreciated. The lower abdomen is soft without any significant tenderness. She does have bowel sounds present. The extremities are without edema. She has palpable dorsalis pedis and radial pulses. LABORATORY STUDIES: Showed that she had a CBC showing a white count of 23.9 with a differential showing 83% neutrophils, 11% lymphocytes and 5% monocytes. Hemoglobin is 13 with a hematocrit of 41 and the platelet count is 527,000. Her chemistry profile shows a sodium of 135, potassium 3.9, chloride 102, CO2 of 24, BUN of 11, creatinine 0.57 and a glucose of 112. Her liver function tests are normal. Total protein is 8.4 with an albumin of 3.3. Lipase is 91. Her hCG is negative. A urinalysis showed a pH of 5, specific gravity of 1.026, with 1+ protein, trace ketones and the dipstick was otherwise negative. Microscopic showed 11 white cells and 9 red cells with some sediment and mucus. Her ultrasound was interpreted by the radiologist as showing abnormal echogenicity within the gallbladder consistent with sludge. The gallbladder was mildly distended with a shadowing gallstone within the non dependent gallbladder wall. Significant gallbladder wall thickening was noted. The common bile duct was 3-4 mm. IMPRESSION: 1. Acute cholecystitis. 2. History of intravenous heroin abuse. 3. Positive hepatitis C. PLAN: The patient was counseled that her ultrasound suggests acute cholecystitis. Interestingly, she does not have a definite stone in the gallbladder neck, but up in the fundus of the gallbladder. There is a large amount of denser material within the gallbladder consistent with sludge. The gallbladder wall is somewhat thickened. I am somewhat surprised that her liver function tests are normal given her reported history of 1 week of pain. I have recommended that we obtain a CT scan to rule out any other abdominal abnormalities that could account for her pain. She will be started on some intravenous fluids with normal saline and Zosyn for antibiotic coverage. She will be provided with some analgesics including Tylenol, Toradol and small doses of morphine. If she truly has acute cholecystitis, then a cholecystectomy during this hospital stay may be appropriate. Unfortunately, because she reports symptoms for a week the gallbladder is likely to be adherent to surrounding structures. The patient will be allowed a few ice chips at this point at her request, but will otherwise be kept nothing by mouth (n.p.o.). JANNET
[2019-09-21] MEDS: PANTOPRAZOLE 40MG INJ (PROTONIX) (C9113) IV SCH (09:08)
[2019-09-21] MEDS ORDERED: LR 1,000 ML IV SCH (10:15)
[2019-09-21 10:22] LABS: BASO # 0.1 10^3/uL (0.0-0.2); BASO % 0.3 % (0.0-1.0); EOS # 0.1 10^3/uL (0.0-0.5); EOS % 0.2 % (0.0-3.0); HEMATOCRIT 38.3 % (36.0-47.0); HEMOGLOBIN 12.2 g/dl (12.0-15.5); LYMPH # 2.6 10^3/uL (1.5-5.0); LYMPH % 9.7 % (24.0-44.0); MEAN CORPUSCULAR HGB CONC 31.9 g/dl (32.0-36.5); MEAN CORPUSCULAR VOLUME 84.7 fl (80.0-96.0); MONO # 1.4 10^3/uL (0.0-0.8); MONO % 5.4 % (0.0-5.0); NEUTROPHILS # 22.2 10^3/uL (1.5-8.5); NEUTROPHILS % 83.5 % (36.0-66.0); RED BLOOD COUNT 4.52 10^6/uL (4.00-5.40); WHITE BLOOD COUNT 26.6 10^3/uL (4.0-10.0)
[2019-09-21 10:43] LABS: PLATELET COUNT, AUTOMATED 390 10^3/uL (150-450)
--- NOTE | 2019-09-21 22:55 | IPN ---
DATE: 09/21/2019 HISTORY: The patient is a 24-year-old woman with a history of heroin abuse who presented on the late night of September 20, 2019 and was admitted by me early the morning of September 21, 2019 with acute cholecystitis over the last week or so. An ultrasound showed fairly drab findings of a mild thickening of her gallbladder wall and some sludge, while her CT scan showed distension of the gallbladder with marked gallbladder wall thickening, certainly consistent with acute cholecystitis. She was admitted and started on Zosyn. She reports that she feels a little better this morning, though still has tenderness in the right upper quadrant. She denies any nausea or vomiting. Vital signs: Show that she had a maximum temperature (T max) of 100.4 at 4:30 this morning. Her pulse has varied in the 70s to about 90. Blood pressure is good with a normal room air oxygen saturation. Intake and output shows that she has had a good IV intake. She reports that she voided in the emergency department at the time of this visit at about 10 o'clock in the morning. She reported that she had not voided since leaving the emergency department. PHYSICAL EXAMINATION: The patient is lying quietly on the hospital bed. She appears more comfortable. She appears slightly pale. The abdomen is flat and soft, but she has some moderate to marked tenderness in the right subcostal area in particular. Laboratory studies this morning show a white count of 27,000 with a hemoglobin of 12, hematocrit of 38, and a platelet count of 390,000. Her differential count shows 84% neutrophils, 10% lymphocytes and 5% monocytes. IMPRESSION: The patient has definite marked acute cholecystitis with a 1-week history of significant symptoms. Her white count is quite elevated despite her Zosyn, although she has only received one or two doses at the time of her most recent labs. She is feeling slightly better this morning and denies any nausea or vomiting. PLAN: The patient will be continued on the Zosyn. I will allow her to take some clear liquids as long as she does not have problems with nausea or vomiting. She will be added on to the operating room (OR) schedule for Sunday, September 22, 2019, for a laparoscopic and possible open cholecystectomy. She was counseled regarding the nature of the procedure and desires to proceed. JANNET
[2019-09-22] VITALS (9 sets, daily range): BP systolic 106–130; BP diastolic 66–88
[2019-09-22] MEDS: PIPERACILLIN/TAZOBACTAM SOD 3.375 GM in D5W MINI-BAG PLUS 50 ML IV SCH ×4 (03:54→23:55)
[2019-09-22] MEDS: KETOROLAC 30 MG/ML VIAL (J1885) IV SCH ×4 (03:55→23:55)
[2019-09-22 06:07] LABS: BASO % 0.3 % (0.0-1.0); EOS # 0.2 10^3/uL (0.0-0.5); EOS % 1.4 % (0.0-3.0); HEMATOCRIT 33.6 % (36.0-47.0); HEMOGLOBIN 10.9 g/dl (12.0-15.5); LYMPH # 1.8 10^3/uL (1.5-5.0); LYMPH % 14.9 % (24.0-44.0); MEAN CORPUSCULAR HEMOGLOBIN 27.4 pg (27.0-33.0); MEAN CORPUSCULAR HGB CONC 32.4 g/dl (32.0-36.5); MEAN CORPUSCULAR VOLUME 84.4 fl (80.0-96.0); MONO # 0.8 10^3/uL (0.0-0.8); MONO % 6.1 % (0.0-5.0); NEUTROPHILS # 9.5 10^3/uL (1.5-8.5); NEUTROPHILS % 76.7 % (36.0-66.0); PLATELET COUNT, AUTOMATED 314 10^3/uL (150-450); RED BLOOD COUNT 3.98 10^6/uL (4.00-5.40); WHITE BLOOD COUNT 12.4 10^3/uL (4.0-10.0)
[2019-09-22 06:43] LABS: ALBUMIN 2.4 GM/DL (3.2-5.2); ALT/SGPT 9 U/L (12-78); BILIRUBIN,TOTAL 1.1 MG/DL (0.2-1.0); BLOOD UREA NITROGEN 8 MG/DL (7-18); CALCIUM LEVEL 8.4 MG/DL (8.5-10.1); CARBON DIOXIDE LEVEL 28 MEQ/L (21-32); CHLORIDE LEVEL 108 MEQ/L (98-107); CREATININE FOR GFR 0.54 MG/DL (0.55-1.30); GLOMERULAR FILTRATION RATE > 60.0 (>60); GLUCOSE, FASTING 80 MG/DL (70-100); POTASSIUM SERUM 3.7 MEQ/L (3.5-5.1); SODIUM LEVEL 140 MEQ/L (136-145); TOTAL PROTEIN 6.5 GM/DL (6.4-8.2)
[2019-09-22] MEDS: NS 1,000 ML IV SCH ×2 (10:04→10:15)
[2019-09-22] MEDS: PANTOPRAZOLE 40MG INJ (PROTONIX) (C9113) IV SCH (10:04)
[2019-09-22] MEDS ORDERED: MIDAZOLAM INJ 2 MG/2 ML VIAL (J2250) As Ordered ONE (14:31)
[2019-09-22] MEDS ORDERED: ACETAMINOPHEN 1000MG 100ML IV BTL (OFIRMEV) (J0131 PER 10MG) As Ordered ONE ×2 (14:32→17:41)
[2019-09-22] MEDS ORDERED: ROCURONIUM BROMIDE 50 MG/5 ML VIAL As Ordered ONE ×2 (14:32→16:52)
[2019-09-22] MEDS ORDERED: LIDOCAINE 2% INJ 100 MG/5 ML SDV (FOR ANES.) As Ordered ONE ×3 (14:32→16:39)
[2019-09-22] MEDS ORDERED: propofoL 200 MG/20 ML VIAL As Ordered ONE (14:32)
[2019-09-22] MEDS ORDERED: fentaNYL 250 MCG/5 ML INJECTION (J3010) As Ordered ONE (14:32)
[2019-09-22] MEDS ORDERED: ePHEDrine SULFATE 25 MG/5 ML(5MG/ML) SYRINGE As Ordered ONE (14:32)
[2019-09-22] MEDS ORDERED: SUGAMMADEX SODIUM 500 MG/5 ML VIAL (BRIDION) As Ordered ONE ×2 (14:32→17:41)
[2019-09-22] MEDS ORDERED: PHENYLephrine HCL 500 MCG/5 ML (100MCG/ML) SYRINGE (J2370) As Ordered ONE (14:32)
[2019-09-22] MEDS ORDERED: dexameTHASONE 4 MG/ML 1ML VIAL (J1100 PER 1MG) As Ordered ONE (14:33)
[2019-09-22] MEDS ORDERED: ONDANSETRON 4MG/2ML VIAL (J2405) As Ordered ONE ×2 (14:33→19:00)
[2019-09-22] MEDS ORDERED: BUPIVACAINE HCL 0.25% 30ML VIAL As Ordered ONE (14:53)
[2019-09-22] MEDS ORDERED: ATROPINE SULF 0.4 MG/ML 1ML VIAL (J0461) As Ordered ONE (16:27)
[2019-09-22] MEDS ORDERED: ZOSYN 3.375 GM VIAL (J2543) As Ordered ONE (17:18)
[2019-09-22] MEDS ORDERED: KETOROLAC 60 MG/2 ML VIAL (J1885) As Ordered ONE (17:41)
[2019-09-22] MEDS ORDERED: ONDANSETRON 4MG/2ML VIAL (J2405) IV PRN (19:00)
[2019-09-22] MEDS ORDERED: METOCLOPRAMIDE INJ 10MG/2ML VIAL (J2765) IV PRN (19:00)
[2019-09-22] MEDS ORDERED: LR 1,000 ML IV SCH (19:00)
[2019-09-22] MEDS ORDERED: MEPERIDINE INJ 25 MG/ML VIAL (J2175) IV PRN (19:00)
[2019-09-22] MEDS ORDERED: fentaNYL 100 MCG/2 ML INJECTION (J3010) As Ordered ONE (19:01)
[2019-09-22] MEDS ORDERED: METOCLOPRAMIDE INJ 10MG/2ML VIAL (J2765) As Ordered ONE (19:01)
[2019-09-22] MEDS ORDERED: oxyCODONE 5MG TAB As Ordered ONE ×2 (19:01→19:35)
[2019-09-22] MEDS: oxyCODONE 5MG TAB PO PRN ×3 (19:10→19:36)
[2019-09-22] MEDS: fentaNYL 100 MCG/2 ML INJECTION (J3010) IV PRN ×4 (19:10→19:37)
[2019-09-22] MEDS: LR 1,000 ML IV SCH (20:14)
[2019-09-23 00:40] VITALS: BP 134/97
[2019-09-23] MEDS: MORPHINE 2 MG/ML 1ML VIAL (J2270) IV PRN ×2 (00:49→17:29)
[2019-09-23] MEDS: LR 1,000 ML IV SCH ×2 (04:00→15:00)
[2019-09-23 04:40] VITALS: BP 134/91
[2019-09-23] MEDS: KETOROLAC 30 MG/ML VIAL (J1885) IV SCH ×4 (05:37→21:42)
[2019-09-23] MEDS: PIPERACILLIN/TAZOBACTAM SOD 3.375 GM in D5W MINI-BAG PLUS 50 ML IV SCH ×4 (05:37→21:42)
[2019-09-23 06:10] LABS: BASO % 0.1 % (0.0-1.0); HEMOGLOBIN 9.9 g/dl (12.0-15.5); LYMPH # 1.3 10^3/uL (1.5-5.0); LYMPH % 9.4 % (24.0-44.0); MEAN CORPUSCULAR HEMOGLOBIN 26.6 pg (27.0-33.0); MEAN CORPUSCULAR HGB CONC 31.9 g/dl (32.0-36.5); MEAN CORPUSCULAR VOLUME 83.3 fl (80.0-96.0); MONO # 0.7 10^3/uL (0.0-0.8); MONO % 4.7 % (0.0-5.0); NEUTROPHILS # 11.9 10^3/uL (1.5-8.5); NEUTROPHILS % 85.1 % (36.0-66.0); PLATELET COUNT, AUTOMATED 329 10^3/uL (150-450); RED BLOOD COUNT 3.72 10^6/uL (4.00-5.40); WHITE BLOOD COUNT 13.9 10^3/uL (4.0-10.0)
[2019-09-23 06:35] LABS: ALBUMIN 2.2 GM/DL (3.2-5.2); ALT/SGPT 15 U/L (12-78); BILIRUBIN,TOTAL 0.4 MG/DL (0.2-1.0); BLOOD UREA NITROGEN 8 MG/DL (7-18); CALCIUM LEVEL 8.4 MG/DL (8.5-10.1); CARBON DIOXIDE LEVEL 25 MEQ/L (21-32); CHLORIDE LEVEL 108 MEQ/L (98-107); CREATININE FOR GFR 0.54 MG/DL (0.55-1.30); GLOMERULAR FILTRATION RATE > 60.0 (>60); GLUCOSE, FASTING 119 MG/DL (70-100); POTASSIUM SERUM 4.2 MEQ/L (3.5-5.1); SODIUM LEVEL 140 MEQ/L (136-145); TOTAL PROTEIN 6.7 GM/DL (6.4-8.2)
[2019-09-23] MEDS: PANTOPRAZOLE 40MG INJ (PROTONIX) (C9113) IV SCH (08:31)
[2019-09-23 10:21] VITALS: BP 137/86
[2019-09-23] MEDS: NORCO, ANEXSIA 5/325MG TABLET (HYDROcodone/ACETAMINOPHEN) PO PRN ×3 (12:11→20:35)
[2019-09-23 14:00] VITALS: BP 131/85
[2019-09-23 18:00] VITALS: BP 133/85
[2019-09-23 20:34] VITALS: BP 132/86
[2019-09-24] MEDS: LR 1,000 ML IV SCH ×2 (00:35→11:00)
[2019-09-24 02:00] VITALS: BP 131/86
[2019-09-24] MEDS: PIPERACILLIN/TAZOBACTAM SOD 3.375 GM in D5W MINI-BAG PLUS 50 ML IV SCH ×2 (04:47→09:01)
[2019-09-24] MEDS: KETOROLAC 30 MG/ML VIAL (J1885) IV SCH ×2 (04:47→09:01)
[2019-09-24] MEDS: NORCO, ANEXSIA 5/325MG TABLET (HYDROcodone/ACETAMINOPHEN) PO PRN (04:47)
[2019-09-24 05:10] VITALS: BP 132/87
[2019-09-24] MEDS: MORPHINE 2 MG/ML 1ML VIAL (J2270) IV PRN (05:49)
--- NOTE | 2019-09-24 06:42 | IPN ---
DATE: 09/23/2019 HISTORY: The patient is postop day #1 from a laparoscopic cholecystectomy for severe acute cholecystitis. She has generally done well overnight. Since surgery, her maximum temperature has been 99.9. Her pulse has generally been running in the 70s to 90s. Blood pressure is good with a normal room air oxygen saturation. Intake and output show that yesterday she had 3000 mL in with only 76 mL recorded out, she does have 3 voids recorded though these were not measured. This morning, she has an excellent urine output recorded and she has been taking clear liquids very well. Her drain had 25 mL out this morning. PHYSICAL EXAMINATION: The patient appears much more comfortable and is alert. She is asking about discharge from the hospital. She does report some discomfort, but it is much less. She has no nausea or vomiting. Heart exam shows a regular rhythm. The abdomen is soft with some mild expected postoperative tenderness. Drain has some minimal serosanguineous fluid. LABORATORY STUDIES: This morning show a white count of 14, hemoglobin 10, hematocrit 31 and platelet count of 329,000. Differential count showed 85% neutrophils, 9% lymphocytes and 5% monocytes. Chemistry profile showed a sodium of 140, potassium 4.2, chloride 108, CO2 of 25, BUN of 8, creatinine 0.5 and a glucose of 119. Liver function tests were normal. IMPRESSION: The patient is doing very well one day postop from a laparoscopic cholecystectomy for severe acute cholecystitis. There was some spillage of gallbladder contents. Her white count is up just a hair today, though her temperature course is improved. PLAN: I have recommended that we keep her in the hospital another day to continue her intravenous Zosyn. Her IV will be saline locked and she will be advanced to a regular diet. If she is doing well in the morning with minimal out from her drain, we will remove her drain and discharge her home on some oral antibiotics. JANNET
--- NOTE | 2019-09-24 07:51 | RO ---
DATE OF PROCEDURE: 09/22/2019 PREOPERATIVE DIAGNOSIS: Acute cholecystitis. POSTOPERATIVE DIAGNOSIS: Cholelithiasis with acute cholecystitis. PROCEDURE PERFORMED: Laparoscopic cholecystectomy. SURGEON: Dr. Erick Mcgill ANESTHESIA: General. 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 Ultrasound showed some mild gallbladder wall thickening and a suggestion of sludge within the gallbladder. A CT scan showed a definite markedly thickened and distended gallbladder consistent with acute cholecystitis. She is now for a laparoscopic cholecystectomy. OPERATIVE PROCEDURE: The patient was brought to the operating room and placed on the table in a supine position. Anesthesia started a new IV in the left upper extremity and she was placed under general anesthesia. Following this during positioning, the IV was found to be dislodged and a new IV was started in her right foot or ankle region. The abdomen was then prepped and draped in a sterile fashion. Palpation of the abdomen revealed a mass in the right upper quadrant consistent with a distended gallbladder. The patient was fairly short wasted. I elected to place the initial trocar in the infraumbilical site. A short longitudinal incision was made. 0.25% Marcaine was infiltrated at the trocar sites as needed. A Veress needle was inserted through the incision and after a positive hanging drop test the abdomen was inflated with carbon dioxide gas. A 5 mm port was placed over a 5 mm camera and advanced through the abdominal wall without difficulty. Initial examination showed the liver in the upper abdomen appeared fairly normal. The gallbladder was noted to be markedly inflamed and encased in surrounding omentum and bowel. There was a small amount of free fluid, just serous fluid within the abdomen. A 5 mm trocar was placed in the left upper quadrant. Two 5 mm ports were placed in the right upper quadrant. The patient was tilted to a reverse Trendelenburg position and rolled slightly to the left. Graspers were inserted and some adhesions between the gallbladder and surrounding tissues were broken apart bluntly. There was marked inflammation, but the adhesions could be almost completely along tissue planes by blunt dissection. The gallbladder was tensely distended so an aspirating needle was inserted and the gallbladder was aspirated. A large amount of brownish turbid fluid was suctioned from the abdomen with essentially complete decompression of the gallbladder, though the wall remained markedly thickened. The gallbladder was grasped and elevated. Dissection was begun in the area of the gallbladder neck. The peritoneum was opened using the hook cautery. With careful dissection through the pericholecystic tissues, the cystic duct was clearly identified and this was doubly clipped with hemoclips and divided. With further dissection, the cholecystic artery was identified and this was also doubly clipped with hemoclips and divided. The gallbladder was then dissected free from the gallbladder bed. There was extensive thickening of the gallbladder wall with inflammation and edema. The gallbladder was entered in the course of dissection with release of a small amount of contents into the subhepatic space. The gallbladder was completely suctioned empty at this point and the infrahepatic space was irrigated. Dissection continued until the gallbladder was completely from the gallbladder bed. This was placed in an Endopouch. Several gallstones had been released into the subhepatic space and these were all removed with a stone forceps. The final inspection revealed no bleeding and no evidence of a bile leak. An 11 mm port was substituted for the 5 mm infraumbilical port to successfully utilize the Endopouch. A 19-I[place] Ru drain was inserted into the abdomen and directed out through the lateral right upper quadrant port site. The drain was directed up through the subhepatic space and across the gallbladder bed to lie beneath the left lobe of the liver. The right upper quadrant was then copiously irrigated to remove any spilled blood. The patient was returned to a flat position. The gallbladder was removed through the infraumbilical site. This required extending the incision both in the skin and fascia slightly to allow passage of the quite thickened gallbladder. The other trocars were removed. The fascia was closed with interrupted simple sutures of 2-0 Vicryl. The drain was sutured to the skin with a 2-0 silk and the site was dressed with a chlorhexidine gluconate OpSite. The other skin incisions were closed with buried 4-0 Vicryl and Steri-Strips with light dressings. The drain was connected to a Faustino-Kong. The patient was awakened in the operating room, extubated and moved to the recovery room in stable condition. JANNET
[2019-09-24] MEDS: PANTOPRAZOLE 40MG INJ (PROTONIX) (C9113) IV SCH (09:00)
[2019-09-24 10:00] VITALS: BP 131/88
[2019-09-24 12:27] LABS: BASO % 0.3 % (0.0-1.0); EOS # 0.1 10^3/uL (0.0-0.5); EOS % 0.8 % (0.0-3.0); HEMATOCRIT 32.2 % (36.0-47.0); HEMOGLOBIN 10.4 g/dl (12.0-15.5); LYMPH # 2.3 10^3/uL (1.5-5.0); LYMPH % 29.2 % (24.0-44.0); MEAN CORPUSCULAR HEMOGLOBIN 27.2 pg (27.0-33.0); MEAN CORPUSCULAR HGB CONC 32.3 g/dl (32.0-36.5); MEAN CORPUSCULAR VOLUME 84.1 fl (80.0-96.0); MONO # 0.4 10^3/uL (0.0-0.8); MONO % 5.2 % (0.0-5.0); NEUTROPHILS # 4.9 10^3/uL (1.5-8.5); NEUTROPHILS % 63.5 % (36.0-66.0); PLATELET COUNT, AUTOMATED 407 10^3/uL (150-450); RED BLOOD COUNT 3.83 10^6/uL (4.00-5.40); WHITE BLOOD COUNT 7.8 10^3/uL (4.0-10.0)
[2019-09-24 14:00] VITALS: BP 135/99
[2019-09-24] MEDS ORDERED: AUGM875T28 PO (14:19)
== END 2019-09-24 14:30 | disposition home or self-care (01) | DRG 263 ==
LOC: M ED 21:16 → M ED INP 09-21 02:15 → ENRESERVTM 09-21 03:38 → ENRESERVDT 09-21 03:38 → M MSPAV 09-21 04:34
PROVIDERS: ADMIT Surgery; ATTEND Surgery
PROC: 0FT44ZZ Resection of Gallbladder, Percutaneous Endoscopic Approach (ICD-10-PCS; principal; 2019-09-22 15:15)
DX: K80.00 Calculus of gallbladder with acute cholecystitis without obstruction (principal); F11.10 Opioid abuse, uncomplicated; Z87.891 Personal history of nicotine dependence